=== PATIENT | male | born 1995 | race Caucasian/White ===

== ENCOUNTER 2022-11-30 17:41 | Emergency (ER) | payer SELFPAY ==
[~2022-11-30] VITALS: Ht 195 cm; Wt 129.0 kg
[2022-11-30] MEDS ORDERED: NS IV 1000 ML 1,000 ML IV STA (17:47)
--- NOTE | 2022-11-30 17:56 | ED Abdominal Pain ---
General Stated Complaint: AB PAIN Source of Information: Patient Exam Limitations: No Limitations History of Present Illness Date Seen by Provider: Nov 30, 2022 Time Seen by Provider: 17:54 Initial Comments Patient is a 27-year-old male with a history of constipation presents ED with left lower quad abdominal pain. He states he woke up with this severe pain in his left lower quadrant. Describes it as somebody punching him in the gut. Rates pain 9 out of 10. Reports nausea without vomiting. States he had bowel movements but reports passing small "pellets". Patient denies of any pain with urination frequent urination or dark urine. No history of similar type pain. No history of previous abdominal surgery. Denies fever chills body aches chest pain or shortness of breath. Patient appears diaphoretic on arrival. Patient denies chest pain, shortness of breath, cough, fever, chills. Allergies and Home Medications Allergies Coded Allergies: No Known Drug Allergies (Unverified , 11/30/22) Patient Home Medication List Home Medication List Reviewed: Yes Hydrocodone/Acetaminophen (Hydrocodone-Acetamin 5-325 mg) 5 Mg-325 Mg Tablet, 1 TAB PO Q4H PRN for PAIN-MODERATE (5-7) Prescribed by: MASON CASTRO on 11/30/221944 Ondansetron (Ondansetron Odt) 4 Mg Tab.rapdis, 4 MG SL Q4H PRN for NAUSEA/VOMITING Prescribed by: MASON CASTRO on 11/30/221943 Tamsulosin HCl (Flomax) 0.4 Mg Cap, 0.4 MG PO DAILY Prescribed by: MASON CASTRO on 11/30/221943 Review of Systems Review of Systems Constitutional: No chills; diaphoresis; No fever; malaise; No weakness EENTM: No Double Vision, No Eye Pain Respiratory: Denies Cough, Denies Orthopnea Cardiovascular: Denies Chest Pain Gastrointestinal: Abdominal Pain, Constipated; Denies Diarrhea; Nausea Genitourinary: Denies Burning, Denies Discharge, Denies Drainage, Denies Frequency Musculoskeletal: No back pain, No joint pain Skin: No change in color, No change in hair/nails All Other Systems Reviewed Negative Unless Noted: Yes Physical Exam Vital Signs Vital Signs - First Documented 11/30/22 17:50 Temp 36.1 Pulse 58 Resp 24 B/P (MAP) 139/77 (97) Pulse Ox 100 O2 Delivery Room Air Capillary Refill : Height/Weight/BMI Height: '" Weight: lbs. oz. kg; BMI Method: General Appearance: WD/WN, no apparent distress HEENT: PERRL/EOMI, normal ENT inspection, TMs normal, pharynx normal Neck: non-tender, full range of motion, supple Respiratory: chest non-tender, lungs clear, normal breath sounds, no respiratory distress Cardiovascular: regular rate, rhythm, no edema, no gallop, no JVD Gastrointestinal: normal bowel sounds, non tender, soft, no organomegaly Extremities: normal range of motion, non-tender, no pedal edema, no calf tenderness Back: normal inspection, no CVA tenderness Neurologic/Psychiatric: brand planner II-XII nml as tested, no motor/sensory deficits, alert, normal mood/affect, oriented x 3 Skin: normal color, warm/dry Lymphatic: no adenopathy Progress/Results/Core Measures Results/Orders Lab Results Laboratory Tests Test 11/30/22 17:57 11/30/22 19:02 Range/Units White Blood Count 18.4 H 4.3-11.0 10^3/uL Red Blood Count 5.42 4.30-5.52 10^6/uL Hemoglobin 15.8 13.3-17.7 g/dL Hematocrit 48 40-54 % Mean Corpuscular Volume 88 80-99 fL Mean Corpuscular Hemoglobin 29 25-34 pg Mean Corpuscular Hemoglobin Concent 33 32-36 g/dL Red Cell Distribution Width 13.2 10.0-14.5 % Platelet Count 259 130-400 10^3/uL Mean Platelet Volume 11.2 9.0-12.2 fL Immature Granulocyte % (Auto) 1 % Neutrophils (%) (Auto) 86 H 42-75 % Lymphocytes (%) (Auto) 6 L 12-44 % Monocytes (%) (Auto) 6 0-12 % Eosinophils (%) (Auto) 0 0-10 % Basophils (%) (Auto) 0 0-10 % Neutrophils # (Auto) 15.9 H 1.8-7.8 10^3/uL Lymphocytes # (Auto) 1.2 1.0-4.0 10^3/uL Monocytes # (Auto) 1.1 H 0.0-1.0 10^3/uL Eosinophils # (Auto) 0.0 0.0-0.3 10^3/uL Basophils # (Auto) 0.1 0.0-0.1 10^3/uL Immature Granulocyte # (Auto) 0.1 0.0-0.1 10^3/uL Neutrophils % (Manual) 88 % Lymphocytes % (Manual) 9 % Monocytes % (Manual) 1 % Eosinophils % (Manual) 0 % Basophils % (Manual) 0 % Band Neutrophils 2 % Blood Morphology Comment NORMAL Sodium Level 139 135-145 MMOL/L Potassium Level 4.1 3.6-5.0 MMOL/L Chloride Level 109 H 98-107 MMOL/L Carbon Dioxide Level 16 L 21-32 MMOL/L Anion Gap 14 5-14 MMOL/L Blood Urea Nitrogen 14 7-18 MG/DL Creatinine 1.37 H 0.60-1.30 MG/DL Estimat Glomerular Filtration Rate 72 BUN/Creatinine Ratio 10 Glucose Level 137 H 70-105 MG/DL Calcium Level 9.7 8.5-10.1 MG/DL Corrected Calcium 8.5-10.1 MG/DL Total Bilirubin 0.8 0.1-1.0 MG/DL Aspartate Amino Transf (AST/SGOT) 25 5-34 U/L Alanine Aminotransferase (ALT/SGPT) 27 0-55 U/L Alkaline Phosphatase 68 40-136 U/L Total Protein 7.7 6.4-8.2 GM/DL Albumin 4.7 H 3.2-4.5 GM/DL Lipase 28 8-78 U/L Urine Color YELLOW Urine Clarity CLEAR Urine pH 1.015 5-9 Urine Specific [place] >9.0 1.016-1.022 Urine Protein 1+ H NEGATIVE Urine Glucose (UA) NEGATIVE NEGATIVE Urine Ketones 2+ H NEGATIVE Urine Nitrite NEGATIVE NEGATIVE Urine Bilirubin NEGATIVE NEGATIVE Urine Urobilinogen 0.2 < = 1.0 MG/DL Urine Leukocyte Esterase NEGATIVE NEGATIVE Urine RBC (Auto) 1+ H NEGATIVE Urine RBC 5-10 H /HPF Urine WBC NONE /HPF Urine Crystals NONE /LPF Urine Bacteria NEGATIVE /HPF Urine Casts NONE /LPF Urine Mucus NEGATIVE /LPF Urine Culture Indicated NO Urine Opiates Screen POSITIVE H NEGATIVE Urine Oxycodone Screen NEGATIVE NEGATIVE Urine Methadone Screen NEGATIVE NEGATIVE Urine Propoxyphene Screen NEGATIVE NEGATIVE Urine Barbiturates Screen NEGATIVE NEGATIVE Ur Tricyclic Antidepressants Screen NEGATIVE NEGATIVE Urine Phencyclidine Screen NEGATIVE NEGATIVE Urine Amphetamines Screen NEGATIVE NEGATIVE Urine Methamphetamines Screen NEGATIVE NEGATIVE Urine Benzodiazepines Screen NEGATIVE NEGATIVE Urine Cocaine Screen NEGATIVE NEGATIVE Urine Cannabinoids Screen POSITIVE H NEGATIVE My Orders Orders - JEWEL SARGENT Ua Culture If Indicated (11/30/22 17:44) Cbc And Automated Diff (11/30/22 17:47) Comprehensive Metabolic Panel (11/30/22 17:47) Lipase (11/30/22 17:47) Ns Iv 1000 Ml (Ns Iv 1000 Ml) (11/30/22 17:47) Ct Abdomen/Pelvis W (11/30/22 17:53) Fentanyl Injection (Fentanyl Injection (11/30/22 17:57) Ondansetron Injection (Ondansetron Inj (11/30/22 18:00) Iohexol Injection (Omnipaque 350 Mg/Ml 1 (11/30/22 18:00) Received Contrast (Hold Metformin- Contr (11/30/22 18:00) Ns (Ivpb) 100 Ml (Sodium Chloride 0.9% 1 (11/30/22 18:00) Fentanyl Injection (Fentanyl Injection (11/30/22 17:59) Manual Differential (11/30/22 17:57) Ekg Tracing (11/30/22 18:13) Drug Screen Stat (Urine) (11/30/22 18:13) Morphine Injection (Morphine Injection (11/30/22 18:30) Ketorolac Injection (Ketorolac Injection (11/30/22 19:15) Rx-Hydrocodone/Apap 5-325 Mg (Rx-Vicodin (11/30/22 19:45) Medications Given in ED Current Medications Medications Dose Ordered Sig/Brad Route Start Time Stop Time Status Last Admin Dose Admin Acetaminophen/ Hydrocodone Bitart 1 ea ONCE ONCE PO 11/30/22 19:45 11/30/22 19:46 DC 11/30/22 20:48 1 EA Iohexol 100 ml ONCE ONCE IV 11/30/22 18:00 11/30/22 18:01 DC 11/30/22 18:59 100 ML Ketorolac Tromethamine 30 mg ONCE ONCE IVP 11/30/22 19:15 11/30/22 19:16 DC 11/30/22 19:24 30 MG Morphine Sulfate 4 mg ONCE ONCE IVP 11/30/22 18:30 11/30/22 18:31 DC 11/30/22 18:32 4 MG Ondansetron HCl 4 mg ONCE ONCE IVP 11/30/22 18:00 11/30/22 18:01 DC 11/30/22 18:17 4 MG Sodium Chloride 100 ml ONCE ONCE IV 11/30/22 18:00 11/30/22 18:01 DC 11/30/22 18:59 80 ML Vital Signs/I&O 11/30/22 17:50 Temp 36.1 Pulse 58 Resp 24 B/P (MAP) 139/77 (97) Pulse Ox 100 O2 Delivery Room Air Comment Sinus bradycardia with sinus arrhythmia, 53 bpm, QRS duration 96 MS, QTc 403 MS. Departure Communication (PCP) Differential diagnosis, colitis, diverticulitis, urolithiasis, constipation. Patient presents ED with acute onset of left lower quad abdominal pain. Patient diaphoretic. Nausea without vomiting. No history of previous abdominal surgery. CBC, CMP, lipase, urinalysis was ordered. CBC showed elevated white blood count at 18. Patient was afebrile and was not tachycardic. Did have a low heart rate in the 50s. Chemistry was grossly unremarkable besides a creatinine 1.37. Urinalysis positive for red blood cells without evidence of infection. Drug screen positive for marijuana. CT abdomen pelvis showed 1 mm calculus at the left ureterovesical junction causing mild left hydronephrosis. Patient did receive a liter of fluid. Patient with moderate distress on arrival. Received a dose of fentanyl and then morphine with some improvement. Pain did return and received Toradol with improvement. Patient continued to remain asymptomatic. Patient feeling much better at this time. Urinating without any difficulties. Will discharge with strict return precautions. Provided urology outpatient follow-up. Recommend staying hydrated. Will discharge with Flomax, Zofran and few days worth of hydrocodone. If any worsening symptoms such as difficulty urine, increasing pain to return back to ED. Impression Primary Impression: Ureterolithiasis Disposition: HOME, SELF-CARE Condition: Stable Departure-Patient Inst. Decision time for Depature: 19:43 Referrals: NO,LOCAL PHYSICIAN (PCP) Primary Care Physician [facility] [place] Patient Instructions: Kidney stones in adults Add. Discharge Instructions: Provided number for [facility] urology [phone] for further evaluation. If any worsening symptoms return back to ED such as decreased urine output, increasing pain. Take Flomax to help urinate. Drink plenty of fluids. Hydrocodone as needed. Scripts Hydrocodone/Acetaminophen (Hydrocodone-Acetamin 5-325 mg) 5 Mg-325 Mg Tablet 1 TAB PO Q4H PRN for PAIN-MODERATE (5-7), #6 TAB Prov: JEWEL SARGENT 11/30/22 Ondansetron (Ondansetron Odt) 4 Mg Tab.rapdis 4 MG SL Q4H PRN for NAUSEA/VOMITING, #8 TAB Prov: JEWEL SARGENT 11/30/22 Tamsulosin HCl (Flomax) 0.4 Mg Cap 0.4 MG PO DAILY, #15 CAP Prov: JEWEL SARGENT 11/30/22 JEWEL SARGENT Nov 30, 2022 17:56
[2022-11-30] MEDS ORDERED: fentaNYL INJECTION 100 MCG/2 ML VIAL IVP STA (17:57)
[2022-11-30] MEDS ORDERED: fentaNYL INJECTION 100 MCG/2 ML VIAL ONE (17:59)
[2022-11-30] MEDS ORDERED: ONDANSETRON INJECTION 4 MG/2 ML (SDV) IVP ONE (18:00)
[2022-11-30] MEDS ORDERED: IOHEXOL 350 MG/ML 100 ML (OMNIPAQUE 350) VIAL IV ONE (18:00)
[2022-11-30] MEDS ORDERED: HOLD METFORMIN - RECEIVED CONTRAST 20 ML VIAL IV SCH (18:00)
[2022-11-30] MEDS ORDERED: NS 100 ML (IVPB) BAG IV ONE (18:00)
[2022-11-30 18:03] LABS: BASOPHILS # (AUTO) 0.1 10^3/uL (0.0-0.1); BASOPHILS % (AUTO) 0 % (0-10); EOSINOPHILS % (AUTO) 0 % (0-10); HEMATOCRIT 48 % (40-54); HEMOGLOBIN 15.8 g/dL (13.3-17.7); LYMPHOCYTES # (AUTO) 1.2 10^3/uL (1.0-4.0); LYMPHOCYTES % (AUTO) 6 % (12-44); MEAN CORPUSCULAR HEMOGLOBIN 29 pg (25-34); MEAN CORPUSCULAR HGB CONC 33 g/dL (32-36); MEAN CORPUSCULAR VOLUME 88 fL (80-99); MEAN PLATELET VOLUME 11.2 fL (9.0-12.2); MONOCYTES # (AUTO) 1.1 10^3/uL (0.0-1.0); MONOCYTES % (AUTO) 6 % (0-12); NEUTROPHILS # (AUTO) 15.9 10^3/uL (1.8-7.8); NEUTROPHILS % (AUTO) 86 % (42-75); PLATELET COUNT 259 10^3/uL (130-400); WHITE BLOOD COUNT 18.4 10^3/uL (4.3-11.0)
[2022-11-30] MEDS ORDERED: morphine INJ 10 MG/ML 1ML (SYR OR VIAL) IVP ONE (18:30)
[2022-11-30 18:36] LABS: BAND NEUTROPHILS 2 %; BASOPHILS % (MANUAL) 0 %; EOSINOPHILS % (MANUAL) 0 %; LYMPHOCYTES % (MANUAL) 9 %; MONOCYTES % (MANUAL) 1 %; NEUTROPHILS % (MANUAL) 88 %; RBC MORPH NORMAL
[2022-11-30 18:38] LABS: ALBUMIN 4.7 GM/DL (3.2-4.5)
[2022-11-30 18:39] LABS: CHLORIDE 109 MMOL/L (98-107); POTASSIUM 4.1 MMOL/L (3.6-5.0); SODIUM 139 MMOL/L (135-145)
[2022-11-30 18:40] LABS: CALCIUM 9.7 MG/DL (8.5-10.1)
[2022-11-30 18:41] LABS: GLUCOSE 137 MG/DL (70-105); TOTAL PROTEIN 7.7 GM/DL (6.4-8.2)
[2022-11-30 18:42] LABS: CARBON DIOXIDE 16 MMOL/L (21-32)
[2022-11-30 18:43] LABS: BILIRUBIN,TOTAL 0.8 MG/DL (0.1-1.0)
[2022-11-30 18:44] LABS: ALKALINE PHOSPHATASE 68 U/L (40-136)
[2022-11-30 18:45] LABS: CREATININE SERUM 1.37 MG/DL (0.60-1.30); GFR ESTIMATED 72
[2022-11-30 18:46] LABS: BUN/CREATININE RATIO 10
[2022-11-30 18:48] LABS: ALANINE AMINOTRANSFERASE 27 U/L (0-55); LIPASE 28 U/L (8-78)
--- NOTE | 2022-11-30 19:08 | Diagnostic Imaging Report ---
PROCEDURE: CT abdomen and pelvis with contrast. TECHNIQUE: Multiple contiguous axial images were obtained through the abdomen and pelvis after administration of intravenous contrast. Auto Exposure Controls were utilized during the CT exam to meet ALARA standards for radiation dose reduction. All CT scans use one or more of the following dose optimizing techniques: automated exposure control, MA and/or KvP adjustment based on patient size and exam type or iterative reconstruction. INDICATION: Left lower quadrant abdominal pain Lung bases are clear. Liver appears normal. Gallbladder appears normal. Pancreas appears normal. Portal vein is patent. Common duct is not dilated. Spleen is not enlarged. Gastroesophageal junction is normal. Adrenals are normal. There is minimal left hydronephrosis with some left perinephric edema. There is a 1 mm calculus at the left ureterovesical junction causing mild obstruction. Large and small bowel are unremarkable. There is no appendicitis. There is no intraperitoneal free air or free fluid. IMPRESSION: 1 mm calculus at the left ureterovesical junction causing mild left hydronephrosis. Dictated by: Dictated on workstation # [id number]
[2022-11-30] MEDS ORDERED: KETOROLAC INJ 30 MG/ML VIAL IVP ONE (19:15)
[2022-11-30 19:17] LABS: COLOR,URINE YELLOW
[2022-11-30 19:18] LABS: BACTERIA,URINE NEGATIVE /HPF; BILIRUBIN,URINE NEGATIVE (NEGATIVE); CLARITY,URINE CLEAR; GLUCOSE, URINE (UA) NEGATIVE (NEGATIVE); KETONES,URINE 2+ (NEGATIVE); LEUKOCYTE ESTERASE ,URINE NEGATIVE (NEGATIVE); NITRITE,URINE NEGATIVE (NEGATIVE); PH,URINE 1.015 (5-9); PROTEIN,URINE 1+ (NEGATIVE)
[2022-11-30 19:25] LABS: AMPHETAMINE SCREEN, URINE NEGATIVE (NEGATIVE); BARBITURATE SCREEN URINE NEGATIVE (NEGATIVE); CANNABINOID SCREEN, URINE POSITIVE (NEGATIVE); COCAINE SCREEN URINE NEGATIVE (NEGATIVE); METHADONE STAT NEGATIVE (NEGATIVE); OPIATE SCREEN URINE POSITIVE (NEGATIVE); OXYCODONE STAT NEGATIVE (NEGATIVE); PROPOXYPHENE STAT NEGATIVE (NEGATIVE); TRICYCLIC ANTIDEPRESSANTS SCRE NEGATIVE (NEGATIVE)
[2022-11-30] MEDS ORDERED: ACHD5005 PO (19:44)
[2022-11-30] MEDS ORDERED: TMSL.4C PO (19:44)
[2022-11-30] MEDS ORDERED: ONDA4TAB11 SL (19:44)
[2022-11-30 21:02] VITALS: BP 136/85
== END 2022-11-30 21:02 | disposition home or self-care (01) ==
LOC: ER 17:44
DX: N13.2 Hydronephrosis with renal and ureteral calculous obstruction (principal); D72.829 Elevated white blood cell count, unspecified
CPT/HCPCS: 36415; 74177; 80053; 80306; 81000; 83690; 85007; 85027; 93005; 96361; 96374; 96375